=== PATIENT | female | born 1950 | race Caucasian/White ===

== ENCOUNTER 2021-05-21 07:52 | Outpatient (CLI) | payer MEDICARE, SELFPAY ==
--- NOTE | ~2021-05-21 | DEXA_ITS ---
Bone Density Report Name: Renea Romero Age: 71 Sex: Female Ethnicity: White Date of : 1950 Indication: osteopenia; prior fracture; postmenopausal Referring Provider: Tootie Wolf Study: Bone densitometry was performed. Exam Date: May 21, 2021 Accession number: [id number] Bone Density: Region BMD T-score Z-score Classification AP Spine (L1-L4) 0.858 -1.7 0.5 Osteopenia Femoral Neck (Left) 0.505 -3.1 -1.2 Osteoporosis Total Hip (Left) 0.656 -2.3 -0.8 Osteopenia Total Hip Bilateral Avg 0.655 -2.4 -0.8 Osteopenia Femoral Neck (Right) 0.529 -2.9 -1.0 Osteoporosis Total Hip (Right) 0.653 -2.4 -0.8 Osteopenia World Health Organization criteria for BMD impression classify patients as: Normal (T-score at or above -1.0), Osteopenia (T-score between -1.0 and -2.5), or Osteoporosis (T-score at or below -2.5). 10-year Fracture Risk: FRAX not reported because: Some T-score for Spine Total or Hip Total or Femoral Neck at or below -2.5 Previous Exams: Region Exam Age BMD T-score BMD Change BMD Change Date g/cm2 vs Baseline vs Previous AP Spine(L1-L4) 05/21/2021 71 0.858 -1.7 -0.168(-16.3%) -0.040(-4.5%)* 04/29/2017 67 0.898 -1.4 -0.127(-12.4%) 0.014(1.6%) 03/30/2014 63 0.884 -1.5 -0.142(-13.8%) -0.121(-12.0%) 10/01/2010 60 1.004 -0.4 -0.021(-2.0%) 0.030(3.0%)* 12/27/2007 57 0.975 -0.7 -0.051(-4.9%)* -0.051(-4.9%)* 02/22/2004 53 1.025 -0.2 Total Hip(Left) 05/21/2021 71 0.656 -2.3 -0.097(-12.9%) -0.042(-6.1%)* 04/29/2017 67 0.698 -2.0 -0.055(-7.3%)# -0.054(-7.2%)* 03/30/2014 63 0.753 -1.6 0.000(0.0%)# 0.050(7.1%)# 10/01/2010 60 0.703 -2.0 -0.050(-6.6%)* -0.025(-3.4%) 12/27/2007 57 0.728 -1.8 -0.025(-3.4%) -0.025(-3.4%) 02/22/2004 53 0.753 -1.5 Total Hip(Right) 05/21/2021 71 0.653 -2.4 -0.123(-15.9%) -0.066(-9.2%)* 04/29/2017 67 0.719 -1.8 -0.057(-7.3%)# 0.018(2.5%) 03/30/2014 63 0.701 -2.0 -0.075(-9.6%)# -0.021(-2.9%)# 10/01/2010 60 0.722 -1.8 -0.053(-6.9%)* -0.001(-0.2%) 12/27/2007 57 0.723 -1.8 -0.052(-6.7%)* -0.052(-6.7%)* 02/22/2004 53 0.776 -1.4 *Denotes significance at 95% confidence level, LSC for AP Spine = 0.022 g/cm2, LSC for Total Hip = 0.027 g/cm2 Clinical Information Provided by Patient: Has had a low trauma fracture Has used the following medications: Vitamin D, Calcium Patient maximum height was 61 Menopause Age: 47 Drinks caffeinated beverages Onset of menses at age 13
== END 2021-05-21 07:53 | disposition home or self-care (01) ==
PROVIDERS: PCP Family Medicine; Visit Provider Physician Assistant
DX: Z78.0 Asymptomatic menopausal state (principal); M81.0 Age-related osteoporosis without current pathological fracture; M85.89 Other specified disorders of bone density and structure, multiple sites
CPT/HCPCS: 77080

== ENCOUNTER 2021-06-24 09:45 | Outpatient (CLI) | payer MEDICARE, SELFPAY ==
--- NOTE | ~2021-06-24 | MM_ITS ---
EXAMINATION: MM screening [facility] BI w live HISTORY: Screening mammogram TECHNIQUE: Craniocaudal and mediolateral oblique 3-D tomosynthesis images were obtained and synthetic 2-D images were generated. CAD analysis was submitted and interpreted. COMPARISON: 05/19/2019, 04/29/2017, 12/03/2015 BREAST PARENCHYMAL COMPOSITION: The breasts are heterogeneously dense, which may obscure small masses . FINDINGS: There is no evidence of suspicious mass, calcification, or architectural distortion to sugg est malignancy in either breast. There has been no suspicious interval change. IMPRESSION: 1. No mammographic evidence of malignancy. 2. Recommend routine screening mammography in one year. BI-RADS Category 1: Negative Reviewed, dictated and finalized at location A. ARCH ENGINEER
== END 2021-06-24 09:46 | disposition home or self-care (01) ==
LOC: ANHIMG 09:48
PROVIDERS: PCP Family Medicine; Visit Provider Family Medicine
DX: Z12.31 Encounter for screening mammogram for malignant neoplasm of breast (principal)
CPT/HCPCS: 77063; 77067

== ENCOUNTER → 2022-09-01 11:37 | Outpatient (CLI) | payer MEDICARE, SELFPAY ==
--- NOTE | ~2022-09-01 | XR_ITS ---
Supine and upright views of the abdomen Clinical history: Abdominal pain Findings: Bowel gas pattern is nonspecific. No evidence for obstruction or free air. Calcified uterin e fibroids are present, largest measuring 3.7 cm. Osseous structures are intact. Impression: Calcified uterine fibroids. Reviewed, dictated and finalized at [facility]. FUNCTIONAL ANALYST Impression: Calcified uterine fibroids.
== END ==
PROVIDERS: PCP Family Medicine; Visit Provider Nurse Practitioner
DX: R10.9 Unspecified abdominal pain (principal); D25.9 Leiomyoma of uterus, unspecified
CPT/HCPCS: 74018

== ENCOUNTER 2022-09-02 07:59 | Outpatient (CLI) | payer MEDICARE, SELFPAY ==
--- NOTE | ~2022-09-02 | MM_ITS ---
EXAMINATION: MM screening [facility] BI w live HISTORY: Screening mammogram TECHNIQUE: Craniocaudal and mediolateral oblique 3-D tomosynthesis images were obtained and synthetic 2-D images were generated. CAD analysis was submitted and interpreted. COMPARISON: 06/24/2021, 05/19/2019, 04/29/2017 bilateral screening mammogram examinations BREAST PARENCHYMAL COMPOSITION: The breasts are heterogeneously dense, which may obscure small masses . FINDINGS: There is no evidence of suspicious mass, calcification, or architectural distortion to sugg est malignancy in either breast. There has been no suspicious interval change. IMPRESSION: 1. No mammographic evidence of malignancy. 2. Recommend routine screening mammography in one year. BI-RADS Category 1: Negative Reviewed, dictated and finalized at location A. TRY SCALDER
== END 2022-09-02 08:00 | disposition home or self-care (01) ==
PROVIDERS: PCP Family Medicine; Visit Provider Family Medicine
DX: Z12.31 Encounter for screening mammogram for malignant neoplasm of breast (principal)
CPT/HCPCS: 77063; 77067

== ENCOUNTER 2022-09-05 12:45 | Outpatient (CLI) | payer MEDICARE, SELFPAY ==
--- NOTE | ~2022-09-05 | US_ITS ---
EXAMINATION: US pelvic complete DATE: 09/05/2022 14:02 INDICATION: Pelvic and perineal pain TECHNIQUE: Multiple transabdominal and endovaginal sonographic images of the pelvis were obtained. COMPARISON: None. FINDINGS: The uterus measures 6.2 x 2.4 x 4.2 cm. The endometrial complex measures 4 mm. The right ov baldo is not visualized however no right adnexal abnormality is seen. The left ovary measures 2.4 x 1.6 x 1.6 cm. There is normal vascular flow in the left ovary. There is no free fluid in the pelvis. IMPRESSION: 1. No sonographic correlate for the patient's symptoms. Reviewed, dictated and finalized at location F. CUTTER
== END 2022-09-05 12:46 | disposition home or self-care (01) ==
LOC: ANHIMG 12:46
PROVIDERS: PCP Family Medicine; Visit Provider Nurse Practitioner
DX: R10.2 Pelvic and perineal pain (principal)
CPT/HCPCS: 76856

== ENCOUNTER 2024-04-15 08:28 | Outpatient (CLI) | payer MEDICARE, SELFPAY ==
--- NOTE | ~2024-04-15 | DEXA_ITS ---
Bone Density Report Name: MARCELA LINDER Age: 74 Sex: Female Ethnicity: White Date of : 1950 Indication: osteopenia; Referring Provider: ALDA WITT Study: Bone densitometry was performed. Exam Date: April 15, 2024 Accession number: [id number] Bone Density: Region BMD T-score Z-score Classification AP Spine(L1-L4) 0.875 -1.6 0.8 Osteopenia Femoral Neck (Left) 0.531 -2.9 -0.8 Osteoporosis Total Hip (Left) 0.684 -2.1 -0.4 Osteopenia Femoral Neck (Right) 0.464 -3.5 -1.4 Osteoporosis Total Hip (Right) 0.646 -2.4 -0.7 Osteopenia Total Hip Mean 0.665 -2.3 -0.6 Osteopenia World Health Organization criteria for BMD impression classify patients as: Normal (T-score at or above -1.0), Osteopenia (T-score between -1.0 and -2.5), or Osteoporosis (T-score at or below -2.5). 10-year Fracture Risk: FRAX not reported because: Some T-score for Spine Total or Hip Total or Femoral Neck at or below -2.5 Previous Exams: Region Exam Age BMD T-score BMD Change BMD Change Date g/cm2 vs Baseline vs Previous AP Spine (L1-L4) 04/15/2024 74 0.875 -1.6 -0.023 (-2.6%) 0.017 (2.0%) 05/21/2021 71 0.858 -1.7 -0.040 (-4.5%) -0.040 (-4.5%) 04/29/2017 67 0.898 -1.4 Total Hip(Left) 04/15/2024 74 0.684 -2.1 -0.014 (-2.0%) 0.028 (4.3%)* 05/21/2021 71 0.656 -2.3 -0.042 (-6.1%) -0.042 (-6.1%) 04/29/2017 67 0.698 -2.0 Total Hip(Right) 04/15/2024 74 0.646 -2.4 -0.072 (-10.1% -0.006 (-0.9%) 05/21/2021 71 0.653 -2.4 -0.066 (-9.2%) -0.066 (-9.2%) 04/29/2017 67 0.719 -1.8 *Denotes significance at 95% confidence level, LSC for AP Spine = 0.022 g/cm2, LSC for Total Hip = 0.027 g/cm2 Clinical Information Provided by Patient: Has used the following medications: Vitamin D Patient maximum height was 60 Menopause Age: 47 Drinks caffeinated beverages Onset of menses at age 12 Number of children 3 Impression: The patient has osteoporosis, based on the Right Femoral Neck T-score. No significant bone loss was observed. Discussion: INCREASED RISK OF FRACTURE. BONE DENSITY IS UNDESIRABLY LOW AT ONE OR MORE SKELETAL SITES, CONSISTENT WITH POSTMENOPAUSAL OSTEOPOROSIS. This patient's lowest T-score meets the World Health Organization's (WHO) criteria for osteoporosis at one or more sites (T-score -2.5 or below). In untreated patients, the risk of osteoporotic fracture increases approximately two-fold for each 1.0 SD decrease i
--- NOTE | ~2024-04-15 | MM_ITS ---
EXAMINATION: MM screening [facility] BI w live HISTORY: Screening TECHNIQUE: Craniocaudal and mediolateral oblique 3-D tomosynthesis images were obtained and synthetic 2-D images were generated. CAD analysis was submitted and interpreted. COMPARISON: Comparison to multiple prior studies sequentially, with oldest reviewed study dated 12/02. BREAST PARENCHYMAL COMPOSITION: Dense: The breasts are heterogeneously dense, which may obscure small masses FINDINGS: There is no evidence of suspicious mass, calcification, or architectural distortion to sugg est malignancy in either breast. There has been no suspicious interval change. IMPRESSION: 1. No mammographic evidence of malignancy. 2. Recommend routine screening mammography in one year. BI-RADS Category 1: Negative Reviewed, dictated and finalized at location B.
== END 2024-04-15 08:29 | disposition home or self-care (01) ==
LOC: ANHIMG 08:29
PROVIDERS: PCP Family Medicine; Visit Provider Nurse Practitioner
DX: Z12.31 Encounter for screening mammogram for malignant neoplasm of breast (principal); M85.89 Other specified disorders of bone density and structure, multiple sites; M81.0 Age-related osteoporosis without current pathological fracture
CPT/HCPCS: 77063; 77067; 77080